=== PATIENT | female | born 2000 | race Caucasian/White ===

== ENCOUNTER 2021-10-23 13:59 | Emergency (ER) | payer OTHER, SELFPAY ==
[2021-10-23 14:14] VITALS: BP 139/90; PULSE 92; RESP 16; TEMP 36.1; O2SAT 100
--- NOTE | 2021-10-23 14:25 | ED.URI ---
HPI - URI/Sore Throat General Chief Complaint: Upper Respiratory Infection Stated Complaint: Swollen and red throat,ear pain Time Seen by Provider: 10/23/21 14:20 Source: patient, RN notes reviewed and old records reviewed Mode of arrival: ambulatory Limitations: no limitations History of Present Illness HPI Narrative: 21 year old female who presents to [facility] care with complaints of 2 day history of sore throat and ear pressure. Patient reports that she has been gargling with salt water,has taken Tylenol and Ibuprofen for her discomfort and is also taking daily Zyrtec or Claritin. Patient reports that she has history of strep throat and is usually at least once yearly and in the summer. Patient reports that she noticed her throat being very red and sore with increased pain with swallowing, rates her pain 7/10. Patient denies any cough or congestion reports that she has not had fevers, chills or sweats or any body aches. MD elicited complaint: sore throat and other (ear pressure) Onset (ago): day(s) (2) Pain scale (0-10): 7 Exacerbating factors: swallowing Treatments prior to arrival: acetaminophen, ibuprofen and other (Zyrtec or Claritin also salt water gargles) Related Data Home Medications Medication Instructions Recorded Confirmed dextroamphetamine-amphetamine 10 tablet 10/23/21 mg tablet metformin 500 mg tablet tablet 10/23/21 Allergies Allergy/AdvReac Type Severity Reaction Status Date / Time No Known Allergies Allergy Verified 10/23/21 14:11 Review of Systems Review of Systems: CONSTITUTIONAL: Denies fever, chills, or sweats. EYES: Denies visual changes, redness, or discharge. ENT: Denies rhinorrhea, congestion,positive for sore throat, bilateral otalgia. CARDIOVASCULAR: Denies chest pain, palpitations, or edema. RESPIRATORY: Denies cough or dyspnea. GASTROINTESTINAL: Denies abdominal pain, nausea, vomiting, or diarrhea. GENITOURINARY: Denies dysuria or hematuria. SKIN: Denies rash or itching. MUSCULOSKELETAL: Denies back pain, joint pain, or myalgia. NEUROLOGIC: Denies headache, numbness, or weakness. PSYCHIATRIC: Denies anxiety or depression. All systems reviewed & are unremarkable except as noted in HPI and below PMFSH Past Medical History Medical History (Updated 10/23/21 @ 15:11 by Cora Arellano NP) ADHD (attention deficit hyperactivity disorder) Insulin resistance Social History Social History (Updated 10/23/21 @ 15:25 by Cora Arellano NP) Smoking status: Smoker, status unknown Alcohol intake: current Alcohol use details: social Substance use type: does not use Living arrangements: with family Gender identity (if verbalized by the patient): Female Comments At time of signature, agree with nursing past medical, surgical, social and family history. There is no relevant family history pertinent to the presenting complaint Exam Narrative: GENERAL: Well-appearing, well-nourished, and in no acute distress. HEAD: Normocephalic, atraumatic. EYES: PERRLA and EOMI. ENT: Nares clear, no rhinorrhea or epistaxis. Mucous membranes moist.TM's normal with good light reflex, throat red with no lesions or exudates tonsils red and swollen with uvula red swollen but midline NECK: Supple.lymphadenopathy CHEST: Clear to auscultation. No respiratory distress.SAO2 100% on room air HEART: Regular rate and rhythm. No murmur heard. Normal peripheral pulses. ABDOMEN: Soft, nontender, nondistended, normal active bowel sounds. EXTREMITIES: Normal range of motion. No edema. SKIN: Warm, dry, no rash. NEURO: No focal deficits. Alert and oriented x3. Course Course Level of Care: Express Care Visit Vital Signs Vital signs: Vital Signs Temperature 36.1 C L 10/23/21 14:14 Pulse Rate 92 10/23/21 14:14 Respiratory Rate 16 10/23/21 14:14 Blood Pressure 139/90 10/23/21 14:14 Pulse Oximetry 100 10/23/21 14:14 Temperature 36.1 C L 10/23/21 14:14 Pulse Rate 92 10/23/21 14:14
== END 2021-10-23 14:42 | disposition home or self-care (01) ==
PROVIDERS: Emergency Provider Registered Nurse; PCP Internal Medicine
DX: J01.90 Acute sinusitis, unspecified (principal); H92.03 Otalgia, bilateral; F90.9 Attention-deficit hyperactivity disorder, unspecified type; E88.81 Metabolic syndrome and other insulin resistance
CPT/HCPCS: 87081; 87880; 99213; G0463